=== PATIENT | female | born 1990 | race Two or more races ===

== ENCOUNTER → 2024-05-20 | Outpatient (BNVA) | payer BC, MEDICAID, SELFPAY | END | disposition home or self-care (01) | PROVIDERS: PCP Nurse Practitioner Family; Referring Provider Nurse Practitioner Family; Visit Provider Nurse Practitioner Family | DX: H93.8X3 Other specified disorders of ear, bilateral (principal) | CPT/HCPCS: 99213 ==

== ENCOUNTER 2024-06-13 05:55 | Observation (INO) | payer BC, MEDICAID, SELFPAY ==
[2024-06-13] VITALS (37 sets, daily range): BP systolic 116–131; BP diastolic 65–80; PULSE 70–88; RESP 17–97; TEMP 36.6; O2SAT 91–99; BMI 32.8
[2024-06-13 07:06] LABS: Basophils % (Auto) 0 % (0-2.5); Eosinophils # (Auto) 0.2 Thou/mm3 (0.0-0.5); Eosinophils % (Auto) 2 % (0-10); Hematocrit 38.1 % (36.0-46.0); Hemoglobin 13.7 g/dL (12.0-16.0); Immature Granulocytes % (Auto) 1 % (0-0); Immature Granulocytes Auto 0.08 Thou/mm3 (0.00-0.00); Lymphocytes % (Auto) 16 % (10-50); Mean Corpuscular Hemoglobin 30.9 pg (25.0-35.0); Mean Corpuscular Volume 86 fL (80-100); Monocytes # (Auto) 0.9 Thou/mm3 (0.0-0.8); Monocytes % (Auto) 8 % (0-12); Neutrophils # (Auto) 8.9 Thou/mm3 (1.8-7.7); Neutrophils % (Auto) 73 % (37-80); Nucleated Red Blood Cell % 0 /100 WBC (0); Platelet Count 126 Thou/mm3 (140-440); RDW Standard Deviation 38.7 fL (36.4-46.3); Red Blood Count 4.44 Miln/mm3 (4.00-5.20); White Blood Count 12.2 Thou/mm3 (3.6-11.0)
--- NOTE | 2024-06-13 08:15 | PD.LDHP ---
Documentation for date of: 06/13/24 OB Labor/Induct. HPI History of Present Illness History of present illness: H and P dicatated on the STAT line #9 in [place] [id number] History of Present Adequate Care: Yes Meds Home Medications and Allergies Home Medications ?Medication ?Instructions ?Recorded ?Confirmed ?Type vitamin with calcium tab 06/13/24 06/13/24 History no.72-iron 27 mg-folic acid 1 mg tablet (M- Plus) Allergies Allergy/AdvReac Type Severity Reaction Status Date / Time NKA* Allergy Uncoded 06/13/24 06:22 OB Exam Physical Exam Vital signs: Temp Pulse Resp BP Pulse Ox 97.8 F 82 17 131/80 H 97 06/13/24 06:08 06/13/24 06:08 06/13/24 06:08 06/13/24 06:08 06/13/24 07:49 OB Results Labs 06/13/24 06:35 Labs: Short CBC 06/13/24 Range/Units 06:35 WBC 12.2 H (3.6-11.0) Thou/mm3 Hgb 13.7 (12.0-16.0) g/dL Hct 38.1 (36.0-46.0) % Plt Count 126 L (140-440) Thou/mm3
== END 2024-06-13 10:20 | disposition home or self-care (01) ==
PROVIDERS: Admitting Provider Specialist; Visit Provider Specialist
DX: O46.93 Antepartum hemorrhage, unspecified, third trimester (principal); Z3A.39 39 weeks gestation of pregnancy
CPT/HCPCS: 36415; 59025; 59899; 85025; 86850; 86900; 86901; 86923

== ENCOUNTER 2024-06-13 20:43 | Inpatient (IN) | payer BC, MEDICAID, SELFPAY ==
--- NOTE | 2024-06-13 09:10 | ESHP_ITS ---
RE: ANGELINA LUI : 1990 DATE OF ADMISSION: 06/13/2024 HISTORY OF PRESENT ILLNESS: A 34-year-old 3, para 2-0-0-2 with due date of 06/15/2023 with an intrauterine of 39 weeks and 5 days, who presents to labor and delivery complaining of contractions. The patient had bleeding earlier in the day, but has had no significant bleeding since. The nurse notes that her cervix has changed and she is having contractions every 7 minutes and there is no consistent vaginal bleeding. The patient's care was complicated by gestational thrombocytopenia where her platelet count has ranged from 121,000 to 148,000, currently, it is 125,000. She denies any leaking. She reports normal movement. She is Rh-negative and received RhoGAM at 28 weeks. ALLERGIES: NO KNOWN DRUG ALLERGIES. MEDICATIONS: multivitamin one p.o. daily. SOCIAL HISTORY: She denies any alcohol, drug use, or smoking. She is . PAST MEDICAL HISTORY: Gestational thrombocytopenia, Rh-negative. FAMILY HISTORY: Mother has depression, anxiety, and hypertension. OBSTETRIC HISTORY: In 2013, 39-week, normal vaginal delivery, 6 pound 8 ounce male. No complications. In 2016, 40-week normal vaginal delivery, 7 pound 8 ounce male, no complications. PAST SURGICAL HISTORY: Denies. REVIEW OF SYSTEMS: She denies any headache, change in vision, or right upper quadrant pain. She denies any chest pain, palpitations, shortness of breath, or lower extremity pain. PHYSICAL EXAMINATION: VITAL SIGNS: Blood pressure 110/70, heart rate 88, respirations 18, temperature 98.2. HEENT: Oropharynx and sclerae are clear. LUNGS: Clear to auscultation bilaterally. HEART: Regular rate and rhythm. ABDOMEN: Gravid consistent with estimated weight 7.5 pounds. PELVIC: See RN notes. EXTREMITIES: Nontender. SKIN: No gross rashes or lesions. NEUROLOGIC: No focal deficit. ASSESSMENT: Intrauterine at 39 weeks and 5 days, early labor, vaginal bleeding likely due to cervical change with no evidence of abruption, gestational thrombocytopenia. PLAN: Anticipate spontaneous vaginal delivery. Informed consent was obtained. The patient was made aware of the risks, complications, alternatives, and benefits of operative vaginal delivery and delivery and agrees with these modes of delivery if indicated. DT: 08:14:02 TT: 09:09:00 Ref: [id number] - TID: [id number] MTDD
[2024-06-13 20:55] VITALS: BP 128/79; PULSE 73; RESP 18; RESP 96; TEMP 36.9
[2024-06-13 20:58] VITALS: BP 128/79; PULSE 73
[2024-06-13 21:01] VITALS: BMI 31.1
[2024-06-13 21:16] VITALS: BP 133/80; PULSE 74
[2024-06-13 22:34] VITALS: RESP 16
[2024-06-13 23:31] LABS: Basophils % (Auto) 0 % (0-2.5); Eosinophils # (Auto) 0.2 Thou/mm3 (0.0-0.5); Eosinophils % (Auto) 2 % (0-10); Hematocrit 35.3 % (36.0-46.0); Hemoglobin 12.5 g/dL (12.0-16.0); Immature Granulocytes % (Auto) 1 % (0-0); Immature Granulocytes Auto 0.08 Thou/mm3 (0.00-0.00); Lymphocytes # (Auto) 2.4 Thou/mm3 (1.0-4.8); Lymphocytes % (Auto) 18 % (10-50); Mean Corpuscular HGB Conc 35.4 g/dl (31.0-37.0); Mean Corpuscular Volume 88 fL (80-100); Monocytes # (Auto) 1.2 Thou/mm3 (0.0-0.8); Monocytes % (Auto) 9 % (0-12); Neutrophils # (Auto) 9.2 Thou/mm3 (1.8-7.7); Neutrophils % (Auto) 70 % (37-80); Nucleated Red Blood Cell % 0 /100 WBC (0); Platelet Count 132 Thou/mm3 (140-440); RDW Standard Deviation 39.9 fL (36.4-46.3); Red Blood Count 4.03 Miln/mm3 (4.00-5.20); White Blood Count 13.1 Thou/mm3 (3.6-11.0)
[2024-06-13 23:45] VITALS: BP 128/75; PULSE 67
[2024-06-14] VITALS (114 sets, daily range): BP systolic 90–171; BP diastolic 50–96; PULSE 43–112; RESP 18; TEMP 36.6–37.4; O2SAT 86–100; BMI 31.1
[2024-06-14] MEDS: Ampicillin Inj 2,000 MG in SODIUM CHLORIDE 0.9% (P) 100 ML 200 MG IV (00:03)
[2024-06-14 00:09] LABS: Syphilis Nonreactive (Nonreactive)
[2024-06-14] MEDS: RINGERS LACTATED 1000 ML 1,000 ML 125 ML IV ×3 (01:00→07:24)
[2024-06-14] MEDS: fentaNYL CIT INJ 50 mCg/ML AMP 2ML 100 MCG IV (03:00)
[2024-06-14] MEDS: Ampicillin Inj 1,000 MG in SODIUM CHLORIDE 0.9% (P) 50 ML 50 MG IV (04:07)
[2024-06-14] MEDS: OXYTOCIN in NS 20 units 20 UNIT/1,000 ML BAG 125 UNIT IV (08:00)
--- NOTE | 2024-06-14 08:12 | PD.LDDS ---
DS: Providers Provider Date of admission: 06/13/24 22:55 Primary care physician: Physician No Primary/Family Admitting Provider: Gentry Barrios MD Attending Provider on Admission: Gentry Barrios MD Attending Provider on DC: Gentry Barrios MD Discharging Provider: Gentry Barrios MD DS: Diagnosis Problem List Completed Was Problem List Reviewed/Reconciled?: Yes Summary/Hosp Course Time Spent with Patient Time attestation: Total time spent providing and/or coordinating discharge services: Exam Vital Signs Temp Pulse Resp BP Pulse Ox 98 F 100 18 116/59 L 100 06/14/24 07:16 06/14/24 08:12 06/14/24 07:16 06/14/24 08:12 06/14/24 08:00 Discharge Plan Plan Patient Disposition: HOME (Self Care) Patient condition on transfer: Stable Prescriptions/Referrals Prescriptions/Med Rec: New ibuprofen 600 mg tablet 600 mg PO Q6H PRN (Reason: pain) Qty: 30 0RF Continued M- Plus 27 mg iron- 1 mg tablet 1 tab PO DAILY Patient Comments: TAKE 1 TABLET BY MOUTH EVERY DAY Referrals: No Primary/Family,Physician [Primary Care Provider] - Patient/Caregiver Discharge Instructions Discharge Activity: activity as tolerated Other Discharge Activity Instructions:: Follow up office 6 weeks Print Language: Kiswahili Stand Alone Forms: [facility] Award Info., Patient Portal Info Letter Discharge Order Discharge Orders: Discharge (Routine); Ordered 06/15/24 Ordered By: Gentry Barrios Planned Discharge Date 06/15/24
--- NOTE | 2024-06-14 08:13 | PD.LDDELS ---
Data ([facility]) Data : 3 Term: 2 : 0 : 0
[2024-06-14] MEDS: METHYLERGONOVINE INJ 0.2 MG/ML VIAL IM (08:15)
[2024-06-14] MEDS: TRANEXAMIC ACID 1,000 MG IVPB 1,000 MG/100 ML BAG 200 MG IV (08:18)
[2024-06-14] MEDS: IBUPROFEN TAB 400 MG TABLET 800 MG PO ×2 (08:25→19:39)
[2024-06-14] MEDS: BENZO/LANO/ALOE (Dermoplast) 60 GM CAN 1 SPRAY TOP (08:26)
--- NOTE | 2024-06-14 09:20 | OBDSUM_ITS ---
Data ([facility]) Data : 3 Para: 2 Term: 2 : 0 : 0 Delivery Data ([place]) Labor Data ROM Date: 06/14/24 ROM Time: 07:44 Rupture Type: AROM Delivery Data EDC: 06/15/24 EDC calculated by:: LMP/early US confirmation Labor Onset Stage 1 Date: 06/13/23 Labor Onset Stage 1 Time: 22:24 Labor Onset Stage 2 Date: 06/14/24 Labor Onset Stage 2 Time: 07:44 Delivery Date: 06/14/24 Delivery Time: 07:58 Gestational age (weeks): 39 Gestational age (days): 6 Placenta Delivery Date: 06/14/24 Placenta Delivery Time: 08:02 Delivered by: Gentry Barrios Delivery nurse: Bety Barnes Other staff at delivery: Nurse Other staff at delivery: Nurse Other staff at delivery: Susu Vernon Other staff at delivery: Aracely Suarez Delivery Method Delivery: Vaginal Delivery Type: Spontaneous Anesthesia Type Primary Anesthesia: Epidural Placenta Placenta Delivery: Spontaneous Placenta Cultures Obtained: No Placenta Sent for Examination: No Cord Sample: Cord Blood Obtained Lacerations #1: Perineal: 1st degree Perineal repair Sutures used for repair: 3.0 Chromic EBL Estimated blood loss (ml): 200 Umbilical Cord Nuchal Cord: x1 Loosely Body Cord: x1 Additional Procedures None Complications Complications: Uterine atony Data ([place]) [place] Data Gender: Male Weight Grams: 3060 1 Minute Total: 9 5 Minute Total: 9
[2024-06-14 14:06] LABS: Basophils % (Auto) 0 % (0-2.5); Eosinophils # (Auto) 0.1 Thou/mm3 (0.0-0.5); Eosinophils % (Auto) 0 % (0-10); Hematocrit 33.3 % (36.0-46.0); Hemoglobin 11.8 g/dL (12.0-16.0); Immature Granulocytes % (Auto) 1 % (0-0); Immature Granulocytes Auto 0.09 Thou/mm3 (0.00-0.00); Lymphocytes # (Auto) 1.7 Thou/mm3 (1.0-4.8); Lymphocytes % (Auto) 9 % (10-50); Mean Corpuscular HGB Conc 35.4 g/dl (31.0-37.0); Mean Corpuscular Hemoglobin 30.8 pg (25.0-35.0); Mean Corpuscular Volume 87 fL (80-100); Monocytes # (Auto) 1.4 Thou/mm3 (0.0-0.8); Monocytes % (Auto) 8 % (0-12); Neutrophils # (Auto) 14.6 Thou/mm3 (1.8-7.7); Neutrophils % (Auto) 82 % (37-80); Nucleated Red Blood Cell % 0 /100 WBC (0); Platelet Count 111 Thou/mm3 (140-440); RDW Standard Deviation 39.1 fL (36.4-46.3); Red Blood Count 3.83 Miln/mm3 (4.00-5.20); White Blood Count 17.9 Thou/mm3 (3.6-11.0)
[2024-06-15 04:00] VITALS: BP 119/72; PULSE 73; RESP 16; TEMP 36.8; O2SAT 98
[2024-06-15] MEDS: ACETAMINOPHEN 325 MG TABLET 650 MG PO (04:19)
[2024-06-15 08:00] VITALS: BP 109/78; PULSE 85; RESP 18; TEMP 36.9; O2SAT 97
--- NOTE | 2024-06-15 08:08 | ESPR_ITS ---
RE: ANGELINA LUI : 1990 DATE OF SERVICE: 06/15/2024 SUBJECTIVE: day #1, the patient denies any problem or complaint. OBJECTIVE: Vital Signs: Blood pressure 119/72, heart rate 73, respirations 16, temperature 98.2, pulse oximetry 98% on room air. Lungs: Clear to auscultation bilaterally. Heart: Regular rate and rhythm. Abdomen: Fundus is firm. Extremities: Nontender. LABORATORY DATA: Hemoglobin predelivery is 12.5, postdelivery is 11.8, platelet count is 111,000. ASSESSMENT: 1. day #1, status post spontaneous vaginal delivery. 2. Gestational thrombocytopenia. PLAN: Discharge home. Follow up in the office in 6 weeks. Continue vitamin. Platelet count will resolve and increase on its own. DT: 07:32:29 TT: 08:07:00 Ref: [id number] - TID: [id number]
== END 2024-06-15 11:45 | disposition home or self-care (01) | DRG 806 ==
LOC: S4SX 06-14 08:09 → S4NX 06-14 10:39
PROVIDERS: Admitting Provider Specialist; Visit Provider Specialist
DX: O69.81X0 Labor and delivery complicated by cord around neck, without compression, not applicable or unspecified (principal); O99.12 Other diseases of the blood and blood-forming organs and certain disorders involving the immune mechanism complicating childbirth; O69.82X0 Labor and delivery complicated by other cord entanglement, without compression, not applicable or unspecified; D69.59 Other secondary thrombocytopenia; O70.0 First degree perineal laceration during delivery; O62.2 Other uterine inertia; Z3A.39 39 weeks gestation of pregnancy; Z37.0 Single live birth
CPT/HCPCS: 36415; 59025; 59409; 85025; 86780; 86850; 86900; 86901; 94762; J0290; J2210; J2590; J2795; J3010; J3490; J7050; J7120; A9270